=== PATIENT | male | born 1940 | race Caucasian/White ===

== ENCOUNTER 2017-02-05 20:09 | Emergency (ER) | payer MEDICARE, MEDICAID ==
[~2017-02-05] VITALS: Ht 182.9 cm; Wt 95.7 kg
[~2017-02-05 20:09] MED LIST: ACET325T9 PEG; ALBU2.5V5 NEB; AMIO200T2 PEG; ASPI-482 PEG; CALC60CR TP; DILT30TA26 PEG; FAMO-63 PEG; HALO5TAB PEG; IPRA0.2S5 NEB; IPRA3AMP NEB; KETO15CR2 TP; LORA-434 PEG; MICO130A9 TP; [UNRECOGNIZED DRUG - CODE] PEG
[2017-02-05 21:14] LABS: BILIRUBIN,URINE NEGATIVE (NEG); GLUCOSE,URINE NEGATIVE (NEG); NITRITE,URINE NEGATIVE (NEG); PH,URINE 5.5; PROTEIN,URINE NEGATIVE (NEG-TRACE); UROBILINOGEN,URINE 0.2 mg/dL (0.2 mg/dL)
--- NOTE | 2017-02-05 21:17 | PHYS DOC ---
Past Medical History Past Medical History: CVA, High Cholesterol, Hypertension, TIA Additional Past Medical Histor: chronic resp failure w hypoxia,arrythmia, hyperlipedemia,hemiplegia p cva, Past Surgical History: Other Additional Past Surgical Histo: tracheostomy,g tube, Alcohol Use: None Drug Use: None Adult General Chief Complaint Chief Complaint: ALTERED MENTAL STATUS HPI HPI Patient is a 76 year old male who presents with increase altered mental status per residential staff. Patient has a history of a stroke with right-sided hemiparesis and has a trach and a PEG. Additional states the patient communicates via writing with his left hand however today he was unable to do that and has not been as responsive and alert as he usually is. There is some denies any productive phlegm out of his trach. long-term denies any fevers. There is no family at bedside. The residential did note he has some redness to his sacral area with no skin breakdown. Review of Systems Review of Systems Unable to obtain secondary to patient's clinical condition Allergies Allergies Allergies Coded Allergies Type Severity Reaction Last Updated Verified No Known Drug Allergies 12/28/16 No Physical Exam Physical Exam GEN.: Patient is noncommunicative however will follow commands when told to raise his left thumb HEENT: Head is normocephalic, atraumatic NECK: Supple. LUNGS: Wheezing bilaterally with crackles bilaterally HEART: 4/6 murmur, regular rate and rhythm Peripheral pulses intact ABDOMEN: Soft, nontender. Positive bowel sounds. EXTREMITIES: Without any cyanosis. NEUROLOGIC: Right-sided hemiparesis secondary to previous stroke PSYCHIATRIC: Does not communicate secondary to previous stroke SKIN: An edematous area to the coccyx with no skin breakdown Current Patient Data Vital Signs Vital Signs Date Time Temp Pulse Resp B/P (MAP) Pulse Ox O2 Delivery O2 Flow Rate FiO2 02/05/17 23:30 80 157/85 (109) 96 Room Air 02/05/17 20:17 99.6 16 99.6 Lab Values Laboratory Tests Test 02/05/17 21:05 02/05/17 21:10 02/05/17 21:40 Urine Collection Type U cath Urine Color Yellow Urine Clarity Clear Urine pH 5.5 Urine Specific Morley 1.025 Urine Protein Negative mg/dL (NEG-TRACE) Urine Glucose (UA) Negative mg/dL (NEG) Urine Ketones (Stick) Negative mg/dL (NEG) Urine Blood Negative (NEG) Urine Nitrite Negative (NEG) Urine Bilirubin Negative (NEG) Urine Urobilinogen Dipstick 0.2 mg/dL (0.2 mg/dL) Urine Leukocyte Esterase Negative (NEG) Urine RBC 0 /HPF (0-2) Urine WBC 0 /HPF (0-4) Urine Squamous Epithelial Cells Occ /LPF Urine Transitional Epithelial Cells Occ /LPF Urine Bacteria 0 /HPF (0-FEW) Urine Hyaline Casts Occasional /HPF Urine Mucus Marked /LPF White Blood Count 9.5 x10^3/uL (4.0-11.0) Red Blood Count 5.10 x10^6/uL (4.30-5.70) Hemoglobin 15.3 g/dL (13.0-17.5) Hematocrit 44.4 % (39.0-53.0) Mean Corpuscular Volume 87 fL (79-100) Mean Corpuscular Hemoglobin 30 pg (25-35) Mean Corpuscular Hemoglobin Concent 34 g/dL (31-37) Red Cell Distribution Width 16.3 % (11.5-14.5) H Platelet Count 372 x10^3/uL (140-400) Neutrophils (%) (Auto) 70 % (31-73) Lymphocytes (%) (Auto) 17 % (24-48) L Monocytes (%) (Auto) 10 % (0-9) H Eosinophils (%) (Auto) 2 % (0-3) Basophils (%) (Auto) 1 % (0-3) Neutrophils # (Auto) 6.6 x10^3uL (1.8-7.7) Lymphocytes # (Auto) 1.6 x10^3/uL (1.0-4.8) Monocytes # (Auto) 1.0 x10^3/uL (0.0-1.1) Eosinophils # (Auto) 0.1 x10^3/uL (0.0-0.7) Basophils # (Auto) 0.1 x10^3/uL (0.0-0.2) Sodium Level 139 mmol/L (136-145) Potassium Level 4.9 mmol/L (3.5-5.1) Chloride Level 100 mmol/L (98-107) Carbon Dioxide Level 28 mmol/L (21-32) Anion Gap 11 (6-14) Blood Urea Nitrogen 33 mg/dL (8-26) H Creatinine 1.1 mg/dL (0.7-1.3) Estimated GFR (Cockcroft-Gault) 64.7 BUN/Creatinine Ratio 30 (6-20) H Glucose Level 129 mg/dL (70-99) H Calcium Level 10.2 mg/dL (8.5-10.1) H Total Bilirubin 0.8 mg/dL (0.2-1.0) Aspartate Amino Transferase (AST) 33 U/L (15-37) Alanine Aminotransferase (ALT) 59 U/L (16-63) Alkaline Phosphatase 102 U/L (46-116) Troponin I Quantitative < 0.017 ng/mL (0.000-0.055) Total Protein 6.9 g/dL (6.4-8.2) Albumin 3.4 g/dL (3.4-5.0) Albumin/Globulin Ratio 1.0 (1.0-1.7) Lactic Acid Level 3.0 mmol/L (0.4-2.0) H Laboratory Tests 02/05/17 21:10 Laboratory Tests 02/05/17 21:10 EKG EKG 2015: EKG shows normal sinus rhythm rate of 82 no STEMI [] Radiology/Procedures Radiology/Procedures EXAM: CT HEAD WITHOUT CONTRAST. HISTORY: Altered mental status. TECHNIQUE: Computed tomography of the head was performed without intravenous contrast. COMPARISON: December 30, 2016. FINDINGS: Previously noted left subarachnoid hemorrhage is no longer detectable. There is a left hemispheric encephalomalacia secondary to a chronic large internal carotid artery or middle cerebral artery territory infarction. Prominence of the lateral ventricles and hemispheric sulci indicates moderate atrophy. The visualized paranasal sinuses appear clear. The orbits are unremarkable. The temporal bones are unremarkable. The calvarium reveals no suspicious lesions. There are atherosclerotic calcifications of the internal carotid and vertebral arteries. IMPRESSION: 1. Previously noted left subarachnoid hemorrhage is no longer detectable. 2. Stable left hemispheric encephalomalacia secondary to a large chronic infarct. 3. Moderate atrophy.[] CRX: NAD Course & Med Decision Making Course & Med Decision Making Pertinent Labs and Imaging studies reviewed. (See chart for details) ED course: Patient was seen and examined upon arrival emergency room and a septic workup was ordered 2250: Patient was suctioned by respiratory for increased mucus and post suctioning his breath sounds improved greatly 2315: After reviewing the lab results and CT results there appears to be no emergent medical condition warranting admission at this time. On reexamination the patient he follows commands with his left hand and appears to be at his baseline however will contact the residential and discussed the possibility of transferring back. MDM: After reviewing the chart, CC/HPI/PMH, physical exam, [lab results], [ radiological results], I do not believe the patient has emergent medical condition warranting further workup and/or admission at this time. I do not think the patient is septic from a severe bacterial infection. On reexamination I see no signs of altered mental status and the patient appears to be at his neuro baseline. After talking with the residential the patient is stable to be transferred back to the facility with short-term follow-up with their family doctor. Additional verbal discharge instructions were provided to the patient and that if symptoms get worse or any new symptoms arise that are worrisome to the patient he is to return to the emergency room immediately [] Dragon Disclaimer Dragon Disclaimer This electronic medical record was generated, in whole or in part, using a voice recognition dictation system. Departure Departure Impression: Primary Impression: Altered mental status Additional Impression: Mucus plugging of bronchi Disposition: 03 TRANSFER SNF Condition: IMPROVED Referrals: FAHAD VILLANUEVA MD (PCP) Patient Instructions: Care of a Tracheostomy Tube Additional Instructions: Please follow up with her family doctor next one to 2 days Problem Qualifiers ADAM CAROLINA DO Feb 05, 2017 21:17
[2017-02-05 21:21] LABS: BACTERIA,URINE 0 /HPF (0-FEW); RBC,URINE 0 /HPF (0-2); SQUAMOUS EPITHELIAL CELL,UR OCC /LPF; WBC,URINE 0 /HPF (0-4)
[2017-02-05 21:29] LABS: BASO # 0.1 x10^3/uL (0.0-0.2); BASO % 1 % (0-3); EOS % 2 % (0-3); HEMATOCRIT 44.4 % (39.0-53.0); HEMOGLOBIN 15.3 g/dL (13.0-17.5); LYMPH # 1.6 x10^3/uL (1.0-4.8); LYMPH % 17 % (24-48); MEAN CORPUSCULAR HEMOGLOBIN 30 pg (25-35); MEAN CORPUSCULAR HGB CONC 34 g/dL (31-37); MEAN CORPUSCULAR VOLUME 87 fL (79-100); MONO % 10 % (0-9); NEUT % 70 % (31-73); PLATELET COUNT 372 x10^3/uL (140-400); RED CELL DISTRIBUTION WIDTH 16.3 % (11.5-14.5); WHITE BLOOD COUNT 9.5 x10^3/uL (4.0-11.0)
[2017-02-05 21:36] LABS: CALCIUM 10.2 mg/dL (8.5-10.1); CREATININE 1.1 mg/dL (0.7-1.3); GFR 64.7; POTASSIUM 4.9 mmol/L (3.5-5.1)
--- NOTE | 2017-02-05 21:40 | RAD ---
EXAM: CT HEAD WITHOUT CONTRAST. HISTORY: Altered mental status. TECHNIQUE: Computed tomography of the head was performed without intravenous contrast. COMPARISON: December 30, 2016. FINDINGS: Previously noted left subarachnoid hemorrhage is no longer detectable. There is a left hemispheric encephalomalacia secondary to a chronic large internal carotid artery or middle cerebral artery territory infarction. Prominence of the lateral ventricles and hemispheric sulci indicates moderate atrophy. The visualized paranasal sinuses appear clear. The orbits are unremarkable. The temporal bones are unremarkable. The calvarium reveals no suspicious lesions. There are atherosclerotic calcifications of the internal carotid and vertebral arteries. IMPRESSION: 1. Previously noted left subarachnoid hemorrhage is no longer detectable. 2. Stable left hemispheric encephalomalacia secondary to a large chronic infarct. 3. Moderate atrophy. *One or more of the following individualized dose reduction techniques were utilized for this examination: 1. Automated exposure control. 2. Adjustment of the mA and/or kV according to patient size. 3. Use of iterative reconstruction technique. Electronically signed by: Vitor De Santiago MD (02/05/2017 9:37 PM) [facility]
[2017-02-05 21:43] LABS: ALBUMIN 3.4 g/dL (3.4-5.0); TOTAL BILIRUBIN 0.8 mg/dL (0.2-1.0); TOTAL PROTEIN 6.9 g/dL (6.4-8.2)
[2017-02-06 00:30] VITALS: BP 132/92
--- NOTE | 2017-02-06 07:59 | RAD ---
AP chest radiograph 02/05/2017 Indication: Altered mental status. Comparison: 12/30/2016 chest radiograph. Findings: Tracheostomy tube in similar position. Hypoinflation of both lungs. There are few scattered calcified granulomas in both lungs. No definite pleural effusion, pneumothorax or focal consolidation. Impression: Hypoinflation of both lungs without evidence for acute consolidation or CHF.
--- NOTE | 2017-02-06 08:18 | EKG ---
[facility] [address] [place] [address] Test Date: 2017-02-05 Test Time: 20:15:43 Pat Name: OFE PADILLA Department: Room: Gender: M Telemedicine Physician: : 1940 Requested By: ADAM CAROLINA Order Number: [id number] Reading MD: Frandy Barrios Measurements Intervals Lindsey Rate: 82 P: -5 KS: 156 QRS: -12 QRSD: 86 T: 4 QT: 398 QTc: 468 Interpretive Statements SINUS RHYTHM LEFT AXIS CONSIDER ANTEROSEPTAL MYOCARDIAL DAMAGE CONSISTENT WITH INFERIOR INFARCT Electronically Signed On 02-06-2017 8:38:00 CDT by Frandy Barrios
== END 2017-02-06 01:29 ==
LOC: ER 20:09
DX: T17.590A Other foreign object in bronchus causing asphyxiation, initial encounter (principal); R41.82 Altered mental status, unspecified; I10 Essential (primary) hypertension; Z86.73 Personal history of transient ischemic attack (TIA), and cerebral infarction without residual deficits; E78.5 Hyperlipidemia, unspecified; G81.90 Hemiplegia, unspecified affecting unspecified side; X58.XXXA Exposure to other specified factors, initial encounter; Y93.89 Activity, other specified; Y92.89 Other specified places as the place of occurrence of the external cause; Y99.8 Other external cause status
CPT/HCPCS: 31720; 36415; 70450; 71010; 80053; 81001; 83605; 84484; 85027; 87040; 93005; 99285-25

== ENCOUNTER 2017-08-24 19:47 | Emergency (ER) | payer MEDICARE, OTHER, MEDICAID ==
[2017-08-24 20:30] LABS: ADD MAN DIFF? NO
[2017-08-24 20:33] LABS: BASO # 0.1 x10^3/uL (0.0-0.2); BASO % 1 % (0-3); EOS # 0.2 x10^3/uL (0.0-0.7); EOS % 3 % (0-3); HEMOGLOBIN 13.7 g/dL (13.0-17.5); LYMPH # 1.3 x10^3/uL (1.0-4.8); LYMPH % 17 % (24-48); MEAN CORPUSCULAR HEMOGLOBIN 30 pg (25-35); MEAN CORPUSCULAR HGB CONC 33 g/dL (31-37); MEAN CORPUSCULAR VOLUME 90 fL (79-100); MONO # 0.5 x10^3/uL (0.0-1.1); MONO % 7 % (0-9); NEUT # 5.4 x10^3uL (1.8-7.7); NEUT % 72 % (31-73); PLATELET COUNT 323 x10^3/uL (140-400); RED BLOOD COUNT 4.55 x10^6/uL (4.30-5.70); RED CELL DISTRIBUTION WIDTH 14.8 % (11.5-14.5); WHITE BLOOD COUNT 7.5 x10^3/uL (4.0-11.0)
[2017-08-24 20:45] LABS: ANION GAP 10 (6-14); BLOOD UREA NITROGEN 22 mg/dL (8-26); CALCIUM 9.5 mg/dL (8.5-10.1); CARBON DIOXIDE 28 mmol/L (21-32); CHLORIDE 102 mmol/L (98-107); GFR 72.1; GLUCOSE 133 mg/dL (70-99); POTASSIUM 4.2 mmol/L (3.5-5.1); SODIUM 140 mmol/L (136-145)
[2017-08-24] MEDS: DIPHTH,PERTUSS(ACELL),TET TOX 0.5 ML DISP.SYRIN. VAX IM ×2 (20:58)
== END 2017-08-24 22:50 | disposition home or self-care (01) ==
LOC: ER 19:47
DX: M25.551 Pain in right hip (principal); E78.00 Pure hypercholesterolemia, unspecified; I10 Essential (primary) hypertension; G89.29 Other chronic pain; Z86.73 Personal history of transient ischemic attack (TIA), and cerebral infarction without residual deficits; W05.0XXA Fall from non-moving wheelchair, initial encounter; Y93.89 Activity, other specified; Y99.8 Other external cause status; Y92.89 Other specified places as the place of occurrence of the external cause
CPT/HCPCS: 36415; 70450; 71045; 72192; 80048; 85025; 90471; 90715; 99285-25

== ENCOUNTER 2018-01-17 19:37 | Emergency (ER) | payer MEDICARE, OTHER | END 2018-01-17 22:45 | disposition home or self-care (01) | LOC: ER 22:45 | DX: Z43.0 Encounter for attention to tracheostomy (principal); F41.9 Anxiety disorder, unspecified; K21.9 Gastro-esophageal reflux disease without esophagitis; E78.00 Pure hypercholesterolemia, unspecified; I10 Essential (primary) hypertension; E03.9 Hypothyroidism, unspecified; Z86.73 Personal history of transient ischemic attack (TIA), and cerebral infarction without residual deficits | CPT/HCPCS: 31720; 71045; 99285 ==

== ENCOUNTER 2018-01-27 08:25 | Emergency (ER) | payer MEDICARE, OTHER | END 2018-01-27 11:35 | disposition home or self-care (01) | LOC: ER 08:25 | DX: J95.09 Other tracheostomy complication (principal); E78.00 Pure hypercholesterolemia, unspecified; K21.9 Gastro-esophageal reflux disease without esophagitis; I10 Essential (primary) hypertension; E03.9 Hypothyroidism, unspecified; Z86.73 Personal history of transient ischemic attack (TIA), and cerebral infarction without residual deficits; Y84.8 Other medical procedures as the cause of abnormal reaction of the patient, or of later complication, without mention of misadventure at the time of the procedure; Y92.89 Other specified places as the place of occurrence of the external cause | CPT/HCPCS: 31502; 99284-25 ==

== ENCOUNTER 2018-03-16 12:49 | Emergency (ER) | payer MEDICARE, OTHER ==
[~2018-03-16] VITALS: Ht 177.8 cm; Wt 79.4 kg
[~2018-03-16 12:49] MED LIST changes: +ACET325T9 PO; -AMIO200T2 PEG; +AMIO200T4 PEG; +ATOR10TA PO; +CYCL5TAB PO; +GUAI600T47 PO; -IPRA3AMP NEB; +IPRA3AMP29 NEB; +LEVO50TA PO; +LISI10TA2 PO; +POLY17PO29 PO; +ROPI0.5T PO; +VENTOLIN HFA18 GM INH
--- NOTE | 2018-03-16 14:46 | PHYS DOC ---
Past Medical History Past Medical History: Anxiety, Arrhythmia, CVA, GERD, High Cholesterol, Hypertension, Hypothyroid, TIA Additional Past Medical Histor: chronic resp failure w hypoxia,arrythmia, hemiplegia, aphasia,tia,RLS, Past Surgical History: Other Additional Past Surgical Histo: TRACHE,GTUBE Alcohol Use: None Drug Use: None Adult General Chief Complaint Chief Complaint: OTHER COMPLAINTS [facility] Patient is a 77 year old male who presents with dislodgement of his trach. The patient does reside in a long-term care facility. He is fed through a G- tube. He also has a chronic tracheostomy. He was referred to the emergency department today by [facility] for evaluation of his trach which came out of his neck when he was coughing. The patient arrives in no respiratory distress. He has otherwise been at baseline health and has no acute complaints. Review of Systems Review of Systems Constitutional: Denies fever or chills Eyes: Denies change in visual acuity HENT: Denies nasal congestion Respiratory: Denies cough or shortness of breath Cardiovascular: No additional information not addressed in HPI GI: Denies abdominal pain, nausea, vomiting : Denies dysuria or hematuria Musculoskeletal: Denies back pain Integument: Denies rash or skin lesions Neurologic: Denies headache Endocrine: Denies polyuria All other systems were reviewed and found to be within normal limits, except as documented in this note. Allergies Allergies Allergies Coded Allergies Type Severity Reaction Last Updated Verified No Known Drug Allergies 12/28/16 No Physical Exam Physical Exam Constitutional: Well developed, well nourished, no acute distress, non-toxic appearance HENT: Normocephalic, atraumatic, bilateral external ears normal, oropharynx moist, no oral exudates, stoma over anterior lower portion of neck, no drainage Eyes: PERRLA, EOMI, conjunctiva normal Neck: Normal range of motion, no tenderness Cardiovascular:Heart rate regular rhythm, no murmur Lungs & Thorax: Bilateral breath sounds clear to auscultation Abdomen: Bowel sounds normal, soft, NTTP, Feeding tube in place with no local erythema Skin: Warm, dry, no erythema Extremities: No edema Neurologic: Alert and oriented X 3 Psychologic: Affect normal Current Patient Data Vital Signs Vital Signs Date Time Temp Pulse Resp B/P (MAP) Pulse Ox O2 Delivery O2 Flow Rate FiO2 03/16/18 12:50 99.3 50 20 138/85 (102) 95 Room Air 99.3 EKG EKG [] Radiology/Procedures Radiology/Procedures [] Course & Med Decision Making Course & Med Decision Making Pertinent Labs and Imaging studies reviewed. (See chart for details) Patient was evaluated in the emergency department for a dislodged trach. His stoma appeared healthy with no signs of infection. The patient had a number for cuff less trach at baseline. During the ED encounter, the same was used to replace. A #4 Shiley cuff less trach. During the reinsertion, the stoma was tight around the trachea. After a few moments of gentle pressure. The trach was placed without much difficulty. The patient had a period of time when he was coughing up some mucus and he was suctioned several times in the trachea. His oxygen saturations remained above 95%. Following insertion of the trach, the patient was observed in the emergency department and had no additional difficulties. His vital signs remained normal. [facility]. Dragon Disclaimer Dragon Disclaimer This electronic medical record was generated, in whole or in part, using a voice recognition dictation system. Departure Departure Referrals: FAHAD VILLANUEVA MD (PCP) ELEANOR ROBISON DO Mar 16, 2018 14:46
[2018-03-16 15:30] VITALS: BP 136/73
== END 2018-03-16 15:53 | disposition home or self-care (01) ==
LOC: ER 12:49
DX: J95.03 Malfunction of tracheostomy stoma (principal); E78.00 Pure hypercholesterolemia, unspecified; K21.9 Gastro-esophageal reflux disease without esophagitis; I10 Essential (primary) hypertension; E03.9 Hypothyroidism, unspecified; Z86.73 Personal history of transient ischemic attack (TIA), and cerebral infarction without residual deficits; Y83.8 Other surgical procedures as the cause of abnormal reaction of the patient, or of later complication, without mention of misadventure at the time of the procedure; Y92.89 Other specified places as the place of occurrence of the external cause
CPT/HCPCS: 99284

== ENCOUNTER 2018-06-08 09:12 | Emergency (ER) | payer MEDICARE, OTHER ==
[~2018-06-08] VITALS: Ht 172.7 cm; Wt 99.8 kg
[2018-06-08] MEDS ORDERED: CONTRAST GIVEN. MC PRN (10:30)
[2018-06-08] MEDS ORDERED: IOHEXOL 300 MG/ML 50 ML VIAL. INT CAT ONE (10:30)
[2018-06-08 11:17] VITALS: BP 154/78
--- NOTE | 2018-06-08 11:21 | RAD ---
EXAM: Supine AP view of the abdomen DATE: 06/08/2018 10:15 AM INDICATION: 50 CC OF OMNIPAQUE INJECTED COMPARISON: No Prior FINDINGS: Single AP view of the midcentral abdomen was limited for evaluation following the injection of 50 cc of Omnipaque. Contrast material is seen outlining the lumen of the stomach as well as portions of the duodenum. Prominent duodenal diverticulum is seen. No abnormal small or large bowel dilatation. Moderate colonic stool content. Evaluation for free intraperitoneal gas is limited on this supine exam. Degenerative changes of spine are seen. IMPRESSION: 1. Assess ET tube tip is within the lumen of the stomach with intraluminal contrast material. 2. No evidence for bowel obstruction. Electronically signed by: Anton Adorno MD (06/08/2018 11:17 AM) [facility]
--- NOTE | 2018-06-08 11:53 | PHYS DOC ---
Past Medical History Past Medical History: Anxiety, Arrhythmia, CVA, GERD, High Cholesterol, Hypertension, Hypothyroid, TIA Additional Past Medical Histor: chronic resp failure w hypoxia,arrythmia, hemiplegia, aphasia,tia,RLS, Past Surgical History: Other Additional Past Surgical Histo: TRACHE,GTUBE Alcohol Use: None Drug Use: None Adult General Chief Complaint Chief Complaint: GTUBE REPLACEMENT/MALFUNCTION HPI HPI Patient is a 77 year old male who presents with a need to have his G-tube replaced. When the patient awoke this morning it was discovered that his G-tube had been removed. He denies pain or bleeding at the site. He denies nausea or vomiting. Review of Systems Review of Systems Constitutional: Denies fever or chills [] Eyes: Denies change in visual acuity, redness, or eye pain [] HENT: Denies nasal congestion or sore throat [] Respiratory: Denies cough or shortness of breath [] Cardiovascular: No additional information not addressed in HPI [] GI: See history of present illness : Denies dysuria or hematuria [] Musculoskeletal: Denies back pain or joint pain [] Integument: Denies rash or skin lesions [] Neurologic: Denies headache, focal weakness or sensory changes [] Endocrine: Denies polyuria or polydipsia [] All other systems were reviewed and found to be within normal limits, except as documented in this note. Current Medications Current Medications Current Medications Medications (Trade) Dose Ordered Sig/Sara Start Time Stop Time Status Last Admin Dose Admin Info (CONTRAST GIVEN -- Rx MONITORING) 1 each PRN DAILY PRN 06/08/18 10:30 06/08/18 13:50 DC Iohexol (Omnipaque 300 Mg/ml) 50 ml 1X ONCE 06/08/18 10:30 06/08/18 10:31 DC 06/08/18 11:01 50 ML Allergies Allergies Allergies Coded Allergies Type Severity Reaction Last Updated Verified No Known Drug Allergies 12/28/16 No Physical Exam Physical Exam Constitutional: Well developed, well nourished, no acute distress, non-toxic appearance. [] Cardiovascular:Heart rate regular rhythm, no murmur [] Lungs & Thorax: Bilateral breath sounds clear to auscultation [] Abdomen: Bowel sounds normal, soft, no tenderness, there is a stoma in place with no sign of trauma Psychologic: Affect normal, judgement normal, mood normal. [] Current Patient Data Vital Signs Vital Signs Date Time Temp Pulse Resp B/P (MAP) Pulse Ox O2 Delivery O2 Flow Rate FiO2 06/08/18 11:17 46 14 154/78 (103) 98 Room Air 06/08/18 09:12 98.0 98.0 EKG EKG []The patient's G-tube was attempted to be placed through direct manipulation. The stoma had closed slightly. Dr. Levon Justin assisted with enlarging the opening using a forceps. The G-tube then slid comfortably into place and was inflated with 20 Mcmahon of normal saline. Gastrografin was introduced and a KUB confirmed proper placement. Radiology/Procedures Radiology/Procedures [] PATIENT: OFE PADILLA ACCOUNT: [id number] : 1940 LOCATION: ER AGE: 77 SEX: M EXAM STATUS: REG ER ORD. PHYSICIAN: DUTCH HERNANDEZ APRN REASON: check gtube with gastrographin PROCEDURE: KUB EXAM: Supine AP view of the abdomen DATE: 06/08/2018 10:15 AM INDICATION: 50 CC OF OMNIPAQUE INJECTED COMPARISON: No Prior FINDINGS: Single AP view of the midcentral abdomen was limited for evaluation following the injection of 50 cc of Omnipaque. Contrast material is seen outlining the lumen of the stomach as well as portions of the duodenum. Prominent duodenal diverticulum is seen. No abnormal small or large bowel dilatation. Moderate colonic stool content. Evaluation for free intraperitoneal gas is limited on this supine exam. Degenerative changes of spine are seen. IMPRESSION: 1. Assess ET tube tip is within the lumen of the stomach with intraluminal contrast material. 2. No evidence for bowel obstruction. Electronically signed by: Anton Nieves MD (06/08/2018 11:17 AM) [facility] DICTATED and SIGNED BY: ANTON NIEVES MD DATE: 06/08/18 1112 Course & Med Decision Making Course & Med Decision Making Pertinent Labs and Imaging studies reviewed. (See chart for details) G-TUBE REPLACEMENT PROCEDURE NOTE: I was called to assist with the replacement of the G-tube on a patient by nurse practitioner. The patient's G-tube was apparently pulled out at some point this morning. There is a G-tube tract which appears mature and the central abdomen. The G-tube, which was the same caliber as the patient's tube removed, 20 Malay , would not easily fit into the tract. A hemostat was used to delineate the tract, and slightly dilated the tract, following which the G-tube was able to be placed without difficulty. There was gastric contents aspirated from the G- tube, but given the difficulty in placing the tube a confirmatory x-ray was requested. The patient tolerated the procedure without any difficulty. ER PHYSICIAN ATTENDING NOTE: I have personally seen and examined the patient, and agree with the history, physical exam, and plan, as documented by mid-level provider. Michaela Davis MD Dragon Disclaimer Dragon Disclaimer This electronic medical record was generated, in whole or in part, using a voice recognition dictation system. Departure Departure Impression: Primary Impression: PEG (percutaneous endoscopic gastrostomy) adjustment/replacement/removal Disposition: 01 HOME, SELF-CARE Condition: STABLE Referrals: FAHAD VILLANUEVA MD (PCP) Additional Instructions: Take care not to dislodge your G-tube. Follow-up with your primary care provider as needed. If worsening return to the emergency department. DUTCH HERNANDEZ APRN Jun 08, 2018 11:53 MICHAELA DAVIS MD Jun 09, 2018 08:18
== END 2018-06-08 13:47 | disposition home or self-care (01) ==
LOC: ER 09:12
DX: K94.23 Gastrostomy malfunction (principal); K21.9 Gastro-esophageal reflux disease without esophagitis; E03.9 Hypothyroidism, unspecified; E78.00 Pure hypercholesterolemia, unspecified; I10 Essential (primary) hypertension; Z86.73 Personal history of transient ischemic attack (TIA), and cerebral infarction without residual deficits; Y83.8 Other surgical procedures as the cause of abnormal reaction of the patient, or of later complication, without mention of misadventure at the time of the procedure; Y92.89 Other specified places as the place of occurrence of the external cause
CPT/HCPCS: 43760; 74018; 99284; Q9967; 49450